=== PATIENT | female | born 1955 | race Two or more races ===

== ENCOUNTER 2018-10-25 07:25 | Outpatient (CLI) | payer OTHER | END 2018-10-25 07:38 | disposition home or self-care (01) | LOC: LAB 07:25 | DX: E03.8 Other specified hypothyroidism (principal); E16.2 Hypoglycemia, unspecified; E55.9 Vitamin D deficiency, unspecified; I10 Essential (primary) hypertension; N39.0 Urinary tract infection, site not specified ==

== ENCOUNTER 2019-01-21 07:29 | Outpatient (CLI) | payer OTHER | END 2019-01-21 07:39 | disposition home or self-care (01) | LOC: LAB 07:29 | DX: D64.89 Other specified anemias (principal); E03.8 Other specified hypothyroidism; N95.1 Menopausal and female climacteric states; R89.1 Abnormal level of hormones in specimens from other organs, systems and tissues; E78.49 Other hyperlipidemia; M81.6 Localized osteoporosis [Lequesne] ==

== ENCOUNTER 2019-12-26 09:02 | Outpatient (CLI) | payer OTHER | END 2019-12-26 09:04 | disposition home or self-care (01) | LOC: MAMO-SONO 09:02 | DX: Z12.31 Encounter for screening mammogram for malignant neoplasm of breast (principal); Z87.898 Personal history of other specified conditions; N60.11 Diffuse cystic mastopathy of right breast; N60.12 Diffuse cystic mastopathy of left breast ==

== ENCOUNTER 2019-12-26 11:29 | Outpatient (CLI) | payer OTHER | END 2019-12-26 11:33 | disposition home or self-care (01) | LOC: NUCLEAR 11:29 | DX: M89.8X0 Other specified disorders of bone, multiple sites (principal) ==

== ENCOUNTER 2021-02-23 14:02 | Outpatient (CLI) | payer OTHER | END 2021-02-23 14:18 | disposition home or self-care (01) | LOC: MAMO-SONO 14:02 | PROVIDERS: ATTEND Obstetrics & Gynecology | DX: N60.12 Diffuse cystic mastopathy of left breast (principal); N60.11 Diffuse cystic mastopathy of right breast; Z12.31 Encounter for screening mammogram for malignant neoplasm of breast ==

== ENCOUNTER 2022-06-25 13:15 | Emergency (ER) | payer OTHER ==
[~2022-06-25] VITALS: Ht 162.6 cm; Wt 64.4 kg
[2022-06-25] MEDS ORDERED: ATORVASTATIN CA10 MG PO (13:39)
[2022-06-25] MEDS ORDERED: PROGESTERONE200 MG PO (13:39)
== END 2022-06-25 17:33 | disposition home or self-care (01) ==
LOC: ER 13:15
DX: B34.9 Viral infection, unspecified (principal); Z20.822 Contact with and (suspected) exposure to COVID-19

== ENCOUNTER 2022-11-14 13:21 | Outpatient (CLI) | payer OTHER ==
[~2022-11-14 13:21] MED LIST: ATORVASTATIN CA10 MG PO; PROGESTERONE200 MG PO
== END 2022-11-14 13:23 | disposition home or self-care (01) ==
LOC: NUCLEAR 13:21
DX: M81.0 Age-related osteoporosis without current pathological fracture (principal)